=== PATIENT | female | born 1965 | race Caucasian/White ===

== ENCOUNTER 2016-10-28 09:44 | Observation (INO) | payer MEDICARE, OTHER ==
[~2016-10-28] VITALS: Ht 170.2 cm; Wt 58.0 kg
[2016-10-28] VITALS (8 sets, daily range): BP systolic 107–191; BP diastolic 57–108; PULSE 65–86; RESP 18–22; TEMP 97.6–98.4; O2SAT 92–98
[~2016-10-28 09:44] MED LIST: AMIT1TAB79 PO; AMOX500T PO; ASPI-110 PO; BUSP10TA PO; GABA800T PO; HYDR-3583 PO; ZOLO25TA PO
[2016-10-28 10:15] LABS: AUTOMATED NEUTROPHIL # 3.3 TH/MM3 (1.8-7.7); BASOPHIL % 0.7 % (0.0-2.0); EOSINOPHIL # 0.1 TH/MM3 (0-0.4); EOSINOPHIL % 1.9 % (0.0-4.0); HEMATOCRIT 41.8 % (35.0-46.0); HEMO FLAGS DIFF FINAL; LYMPH % 27.2 % (9.0-44.0); LYMPHOCYTE # 1.5 TH/MM3 (1.0-4.8); MEAN CELL VOLUME 91.7 FL (80.0-100.0); MEAN CORPUSCULAR HEMOGLOBIN 31.1 PG (27.0-34.0); MEAN CORPUSCULAR HGB CONC 33.9 % (32.0-36.0); MONO % 8.9 % (0.0-8.0); NEUT % 61.3 % (16.0-70.0); PLATELET COUNT 231 TH/MM3 (150-450); RED BLOOD COUNT 4.55 MIL/MM3 (4.00-5.30); RED CELL DISTRIBUTION WIDTH 13.5 % (11.6-17.2); WHITE BLOOD COUNT 5.4 TH/MM3 (4.0-11.0)
[2016-10-28 10:30] LABS: ANION GAP 7 MEQ/L (5-15); BLOOD UREA NITROGEN 15 MG/DL (7-18); CHLORIDE 103 MEQ/L (98-107); GLOMERULAR FILTRATION RATE 75 ML/MIN (>89); POTASSIUM 3.8 MEQ/L (3.5-5.1); SODIUM (NA) 140 MEQ/L (136-145)
--- NOTE | 2016-10-28 10:53 | RADRPT ---
EXAM DATE/TIME: 10/28/2016 10:20 [facility] COMPARISON: No previous studies available for comparison. INDICATIONS : Chest pain, cough MEDICAL HISTORY : Chronic obstructive pulmonary disease. Pneumonia SURGICAL HISTORY : None. ENCOUNTER: Initial ACUITY: 3 weeks PAIN SCORE: 6/10 LOCATION: chest FINDINGS: PA and lateral views of the chest demonstrate the lungs to be symmetrically aerated without evidence of mass, infiltrate or effusion. The cardiomediastinal contours are unremarkable. Osseous structure s are intact. CONCLUSION: No acute disease. Oscar Hodges MD FACR on October 28, 2016 at 10:51 Board Certified Radiologist. This report was verified electronically.
--- NOTE | 2016-10-28 11:56 | PD ---
HPI Chief Complaint: OD/ Ingestion Time Seen by Provider: 09:54 Travel History International Travel<30 days: No Contact w/Intl Traveler<30days: No Traveled to known affect area: No History of Present Illness HPI Patient is a 51-year-old female brought in by EMS after being found unconscious. Per EMS she admits to using heroine today. EMS found her unconscious with a GCS is 3, they gave her 0.8 mg of Narcan and she returned to her baseline. Patient is currently complaining of chest pain. She says she smoked crack last night and then used heroin this morning. She says she feels like someone has been pounding on her chest, she believes that her children might have performed chest compressions at the advice of the tree feller operator. She denies cough or cold. She denies fever or chills. PFSH Past Medical History Hx Anticoagulant Therapy: Yes (ASA) Bipolar Disorder: Yes Anxiety: Yes Depression: Yes Heart Rhythm Problems: No Cardiac Catheterization: Yes Cardiovascular Problems: Yes (ANGIOPLASTY ) High Cholesterol: No Congestive Heart Failure: No COPD: Yes Coronary Artery Disease: Yes Diabetes: No Diminished Hearing: No GERD: Yes Hepatitis: Yes (HEP C) Respiratory: Yes Integumentary: Yes (hx of mrsa) Myocardial Infarction: Yes (X 2) Influenza Vaccination: No ?: Not Menopausal: Yes Dilation and Curettage (D&C): Yes (X2) Past Surgical History Appendectomy: Yes Section: Yes (X3) Coronary Artery Bypass Graft: No Hysterectomy: Yes Thoracic Surgery: Yes (RLL LOBECTOMY) Family History Family Myocardial Infarction: Yes Social History Alcohol Use: Yes (OCC) Tobacco Use: Yes (1 PPD) Substance Use: Yes (IV DRUB ABUSE, HEROINE, CRACK) Allergies-Medications (Allergen,Severity, Reaction): Coded Allergies: Duragesic (Verified Allergy, Severe, 10/28/16) Sulfa (Unverified Allergy, Intermediate, Hives, 10/28/16) *MDRO Multi-Drug Resistant Organism (Verified Adverse Reaction, Unknown, ) MRSA buttock wound 05/2015 Reported Meds & Prescriptions Reported Meds & Active Scripts Active Reported Aspirin 81 (Aspirin) 81 Mg Tabdr 81 Mg PO DAILY Elavil (Amitriptyline HCl) 25 Mg Tab 50 Mg PO QHS Gabapentin 800 Mg Tab 800 Mg PO QID Zoloft (Sertraline HCl) 25 Mg Tab 25 Mg PO DAILY Buspirone (Buspirone HCl) 10 Mg Tab 10 Mg PO BID Review of Systems Except as stated in HPI: all other systems reviewed are Neg General / Constitutional: No: Fever, Chills HENT: No: Headaches, Lightheadedness Cardiovascular: Positive: Chest Pain or Discomfort Respiratory: No: Cough, Shortness of Breath Gastrointestinal: No: Nausea, Vomiting Musculoskeletal: No: Myalgias Neurologic: No: Weakness, Dizziness Physical Exam Narrative GENERAL: Awake and alert, in no acute distress. SKIN: Warm and dry. HEAD: Atraumatic. Normocephalic. EYES: Pupils equal and round. No scleral icterus. ENT: Mucous membranes pink and moist. NECK: Trachea midline. No JVD. CARDIOVASCULAR: Regular rate and rhythm. No murmur appreciated. RESPIRATORY: No accessory muscle use. Clear to auscultation. Breath sounds equal bilaterally. GASTROINTESTINAL: Abdomen soft, non-tender, nondistended. MUSCULOSKELETAL: No obvious deformities. No clubbing. No cyanosis. No edema. NEUROLOGICAL: Awake and alert. No obvious cranial nerve deficits. Motor grossly within normal limits. Normal speech. PSYCHIATRIC: Appropriate mood and affect; insight and judgment normal. Data Data Last Documented VS Vital Signs Date Time Temp Pulse Resp B/P Pulse Ox O2 Delivery O2 Flow Rate FiO2 10/28/16 10:01 76 20 156/96 96 Room Air 10/28/16 09:47 97.6 Orders Complete Blood Count With Diff (10/28/16 09:55) Basic Metabolic Panel (Bmp) (10/28/16 09:55) Troponin I (10/28/16 09:55) Chest, Pa & Lat (10/28/16 ) Electrocardiogram (10/28/16 ) Aspirin Chew (Aspirin Chew) (10/28/16 12:00) Admit Order (Ed Use Only) (10/28/16 ) Labs Laboratory Tests Test 10/28/16 10:05 White Blood Count 5.4 TH/MM3 Red Blood Count 4.55 MIL/MM3 Hemoglobin 14.1 GM/DL Hematocrit 41.8 % Mean Corpuscular Volume 91.7 FL Mean Corpuscular Hemoglobin 31.1 PG Mean Corpuscular Hemoglobin 33.9 % Concent Red Cell Distribution Width 13.5 % Platelet Count 231 TH/MM3 Mean Platelet Volume 7.9 FL Neutrophils (%) (Auto) 61.3 % Lymphocytes (%) (Auto) 27.2 % Monocytes (%) (Auto) 8.9 % Eosinophils (%) (Auto) 1.9 % Basophils (%) (Auto) 0.7 % Neutrophils # (Auto) 3.3 TH/MM3 Lymphocytes # (Auto) 1.5 TH/MM3 Monocytes # (Auto) 0.5 TH/MM3 Eosinophils # (Auto) 0.1 TH/MM3 Basophils # (Auto) 0.0 TH/MM3 CBC Comment DIFF FINAL Differential Comment Sodium Level 140 MEQ/L Potassium Level 3.8 MEQ/L Chloride Level 103 MEQ/L Carbon Dioxide Level 30.0 MEQ/L Anion Gap 7 MEQ/L Blood Urea Nitrogen 15 MG/DL Creatinine 0.81 MG/DL Estimat Glomerular Filtration 75 ML/MIN Rate Random Glucose 141 MG/DL Calcium Level 9.1 MG/DL Troponin I LESS THAN 0.02 NG/ML MDM Medical Decision Making Medical Screen Exam Complete: Yes Emergency Medical Condition: Yes Medical Record Reviewed: Yes Interpretation(s) ECG shows normal sinus rhythm at 71, no ST elevation or depression, normal intervals Differential Diagnosis Drug overdose versus ACS versus NSTEMI versus pneumonia Narrative Course Patient is a 51-year-old female brought in by EMS after being found unconscious. Currently she is complaining of chest pain. Exam shows no acute abnormalities. ECG shows no signs of ischemia. IV established, patient connected to the awake overnight monitor. Labs sent including troponin are negative for acute abnormalities. Chest x-ray shows no acute abnormalities. Patient continues to complain of chest pain. Due to patient's age, as well as cocaine use, we'll place in chest pain center for rule out ACS. Diagnosis Primary Impression: Chest pain Qualified Code: R07.9 - Chest pain, unspecified type Admitting Information Admitting Physician Requests: Observation Scripts Carvedilol (Coreg)3.125 Mg Tab3.125 Mg PO Q12HR #60 TAB Prov:Sanjuanita Cueto MD 10/29/16 Yohana Cody MD Oct 28, 2016 11:56
[2016-10-28] MEDS ORDERED: ASPIRIN 81 MG CHEW TAB CHEW ONE (12:00)
--- NOTE | 2016-10-28 13:43 | EKG ---
Date Performed: 10/28/2016 Time Performed: 10:00:23 PTAGE: 51 years EKG: Sinus rhythm VOLTAGE CRITERIA FOR LVH ABNORMAL ECG PREVIOUS TRACING : 06/11/2016 04.21 DOCTOR: Honorio Hudson Interpretating Date/Time 10/28/2016 13:42:31
[2016-10-28] MEDS ORDERED: PILL SPLITTER OTHER PRN (16:15)
--- NOTE | 2016-10-28 17:37 | MH ---
cc: KAYLA CUETO DATE OF ADMISSION: 10/28/2016 DATE OF 1965 REASON FOR ADMISSION OD, ingestion of heroin and crack over the past 24 hours. Travel in the last 30 days none. HISTORY OF PRESENT ILLNESS This is a very thin, chronically ill looking 51-year-old female who was found by EMS unconscious. It is unknown at this time who called EMS. The patient was given Narcan in the field according to the record and returned back to her baseline. The patient does admit to using heroin today. She also states that she smoked crack cocaine last night. On her way to the emergency room, the patient started complaining of chest pain. She describes it as a heavy sensation and feels like someone is squeezing her. She does have musculoskeletal pain and is not tolerant of even a stethoscope touching her chest at this time. The patient denies any nausea, vomiting, diarrhea or constipation. She denies any cough, no fever, no chills. No cough or cold lately. The patient has had a history of coronary artery disease before and has had angioplasty. The patient is a poor historian. Most of this information is being gathered by the record. PAST MEDICAL HISTORY 1. Aspirin for anticoagulant therapy 2. Bipolar disorder, 3. Anxiety depression. 4. Coronary artery disease, 5. Chronic obstructive pulmonary disease 6. Hepatitis C 7. History of MRSA 8. Myocardial infarctions times two. 9. Gastroesophageal reflux disease. PAST SURGICAL HISTORY According to the record 1. Appendectomy, 2. C-sections 3. Hysterectomy, 4. 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 SULFA DURAGESIC. MEDICATIONS Active 1. Aspirin, 2. Elavil 3. Gabapentin 4. Zoloft 5. BuSpar. SOCIAL HISTORY The patient is , currently lives in the home with her son. Her son lives with her. Social occasional alcohol use. Tobacco abuse a pack a day. IV drug user with heroin and crack cocaine since 1994. FAMILY HISTORY Heart disease. REVIEW OF SYSTEMS Limited ROS done secondary to the patient's altered mental status and drowsiness. The main note during our assessment was she is very drowsy, but immediately when aroused has a facial grimace and starts immediately complaining of pain. PHYSICAL EXAMINATION VITAL SIGNS: Temperature is 97.6, pulse is 65, respirations 18, blood pressure now 136/89, 191/108 on initial admission to the emergency room, has trended down since then. O2 sat 92% on room air. SKIN: Dry, thin turgor. No rashes. Warm. No edema. GENERAL: Thin female who looks older than her stated age resting in the bed. She is sleeping until aroused verbally HEENT: Atraumatic, normocephalic. Edentulous. Pupils are equal. Mucous membranes are pink, slightly dry. NECK: Supple. Trachea is midline, slim slender neck. CARDIOVASCULAR: S1-S2 heart sounds are distant. No murmur, rubs or gallops to my knowledge. EXTREMITIES: She has no edema. Pulses are intact. RESPIRATORY: Clear to auscultation anteriorly and posteriorly. No wheezes, rales or rhonchi. She does have some decreased breath sounds in her bases. GI: Abdomen is flat, soft, nontender, nondistended. Active bowel sounds. Musculoskeletal: No obvious deformity, no edema. No clubbing, no cyanosis. NEUROLOGIC: Neurologically she is drowsy. She will arouse and respond minimally to simple questions. Her speech is clear and normal. She is moving all extremities with purpose. No obvious deficits. PSYCHIATRIC: Drowsy, mood and affect is flat. Questionable insight and judgment. LABORATORY DATA Sodium 140, potassium 3.8, chloride 103, carbon dioxide 30, anion gap seven, BUN 15, creatinine 0.81, GFR 75, random glucose 141, calcium 9.1, troponin is less than 0.02. White count is 5.4, RBC 4.55, hemoglobin 14.1, hematocrit 41.8, platelet count 231, monocyte 8.9. IMAGING STUDIES Chest x-ray - Imaging study shows no acute disease. ASSESSMENT Overdose not intentional, chest pain, rule out [place], atypical, possibly costochondritis, hyperglycemia, nondiabetic, anxiety, chronic obstructive pulmonary disease, bipolar disorder and gastroesophageal reflux disease. PLAN Admit. We will reconcile her medications and place her on aspirin. Monitor her labs and treat any abnormals. Consult cardiology for their expert opinion. 2-D echo. DVT prophylaxis with heparin, PUD prophylaxis with Pepcid. The patient will have nitroglycerin ointment on her chest. As needed medications for bowel regimen. ECG monitoring and IV access. The patient is full code, full aggressive care and we will follow. Dictated by THEE Dasilva MD CAMRYN Sandoval/ /4:56 PM /8:21 AM pt is seen & Examined d/w PT d/w Katelin d/w COLIN GIRON see Orders see H&P will f/u Sanjuanita Cueto MD Oct 28, 2016 18:25 MTDD
[2016-10-28] MEDS: NITROGLYCERIN 2% OINT 1 GM PACKET TOPICAL SCH ×2 (17:53→22:41)
[2016-10-28] MEDS: GABAPENTIN 400 MG CAP PO SCH ×2 (17:54→22:41)
[2016-10-28] MEDS ORDERED: hydrALAZINE HCL 20 MG/ML VIAL IV PUSH PRN (18:00)
--- NOTE | 2016-10-28 18:05 | MB ---
cc: DANIEL IRIZARRY MD DATE OF CONSULTATION 10/28/16 INDICATION Chest pain. HISTORY OF PRESENT ILLNESS A 51-year-old female who was initially brought by EMS after being found unconscious. She has a strong history of drug use, used heroin today. In addition, recent crack cocaine use last night. She was given Narcan upon arrival and subsequently improved. Apparently, she has had CPR with chest compressions performed by her children through the advice of diecast machine operator. She is currently in moderate discomfort with pain in the chest. her electrocardiogram was unremarkable. She is not a good historian. PAST MEDICAL HISTORY 1. Bipolar disorder, depression 2. Prior angioplasty 3. Chronic obstructive pulmonary disease. 4. Gastroesophageal reflux disease, 5. Hepatitis C 6. MRSA 7. Right lower lobe lobectomy 8. section 9. hysterectomy. SOCIAL HISTORY Occasional alcohol use, one pack a day smoker, drug abuse as mentioned above. FAMILY HISTORY Has not family history of early coronary disease or sudden cardiac . ALLERGIES DURAGESIC SULFA MEDICATIONS Reported 1. Aspirin, 2. Elavil 3. Gabapentin 4. Buspirone REVIEW OF SYSTEMS 12-point review of systems was performed, negative unless otherwise noted in history of present illness. PHYSICAL EXAMINATION VITAL SIGNS: Temperature 97, pulse 65, blood pressure 136/89 mmHg. GENERAL: Alert and oriented times three in no acute distress. HEENT: Pupils reactive to light and accommodation. Extraocular movements are intact. No elevation in jugular venous distension. No thyromegaly or lymphadenopathy. No carotid bruits. LUNGS: Clear to auscultation bilaterally. CARDIOVASCULAR: Regular rate and rhythm without murmurs, rubs, gallops. ABDOMEN: Nontender, nondistended. Good bowel sounds. No hepatosplenomegaly. EXTREMITIES: No clubbing, cyanosis or edema. Good peripheral pulses. NEUROLOGIC: Cranial nerves intact. Motor sensory grossly intact. LABORATORY DATA WBC 5.4, hemoglobin 14.1, platelet count 231. Sodium 140, potassium 3.9, BUN 15, creatinine 0.81, troponins negative x1. CARDIOLOGY STUDIES Electrocardiogram sinus rhythm, no ischemic changes. ASSESSMENT 1. Chest pain. 2. Recent drug use including crack cocaine and heroin PLAN The patient appears to be in moderate distress. She has significant tenderness on deep palpation which is likely related to CPR. Her electrocardiogram is unremarkable. Initial troponin is negative. I do not think this represents acute coronary syndrome. She was quite hypertensive upon arrival. Her description is not that consistent with aortic dissection especially given her tenderness and reproduction with palpation, but she does look to be more uncomfortable than would be expected with sternal related pain. Given her recent crack cocaine use, I think it would be worthwhile to do a CAT scan of the chest to make sure there is no pathology. She may also be malingering for narcotics. If the CT scan is unremarkable, there is no need for any further cardiac workup at this time given her atypical presentation. No need for stress test. addendum: CT chest unremarkable. will sign off. NSAIDS for musculoskeletal pain call with further questions MD RIMA Ferris/ /5:11 PM /5:54 PM MTDHong
--- NOTE | 2016-10-28 18:25 | HHI.PR ---
Objective Objective Results - Vital Signs Date Time Temp Pulse Resp B/P Pulse Ox O2 Delivery O2 Flow Rate FiO2 10/28/16 17:30 70 10/28/16 17:25 98.0 72 22 107/60 97 10/28/16 14:37 65 18 136/89 92 Room Air 10/28/16 12:34 75 18 133/90 96 Room Air 10/28/16 10:01 76 20 156/96 96 Room Air 10/28/16 09:58 75 20 96 Room Air 10/28/16 09:47 97.6 76 20 191/108 96 Result Diagram: 10/28/16 1005 10/28/16 1005 Other Results Laboratory Tests Test 10/28/16 10:05 White Blood Count 5.4 Red Blood Count 4.55 Hemoglobin 14.1 Hematocrit 41.8 Mean Corpuscular Volume 91.7 Mean Corpuscular Hemoglobin 31.1 Mean Corpuscular Hemoglobin 33.9 Concent Red Cell Distribution Width 13.5 Platelet Count 231 Mean Platelet Volume 7.9 Neutrophils (%) (Auto) 61.3 Lymphocytes (%) (Auto) 27.2 Monocytes (%) (Auto) 8.9 Eosinophils (%) (Auto) 1.9 Basophils (%) (Auto) 0.7 Neutrophils # (Auto) 3.3 Lymphocytes # (Auto) 1.5 Monocytes # (Auto) 0.5 Eosinophils # (Auto) 0.1 Basophils # (Auto) 0.0 CBC Comment DIFF FINAL Differential Comment Sodium Level 140 Potassium Level 3.8 Chloride Level 103 Carbon Dioxide Level 30.0 Anion Gap 7 Blood Urea Nitrogen 15 Creatinine 0.81 Estimat Glomerular Filtration 75 Rate Random Glucose 141 Calcium Level 9.1 Troponin I LESS THAN 0.02 Physical Exam Physical Exam pt is seen & Examined d/w PT d/w Katelin d/w COLIN GIRON see Orders see H&P will f/u Sanjuanita Cueto MD Oct 28, 2016 18:25
[2016-10-28] MEDS ORDERED: IOHEXOL 350 MG/ML 10 ML VIAL (for RAD DIAG) IV ONE (19:48)
--- NOTE | 2016-10-28 20:11 | RADRPT ---
EXAM DATE/TIME: 10/28/2016 19:44 [facility] COMPARISON: No previous studies available for comparison. INDICATIONS : Chest pain with hypertension and cocaine use. Evaluate dissection. IV CONTRAST: 100 cc Omnipaque 350 (iohexol) IV RADIATION DOSE: 14.22 CTDIvol (mGy) MEDICAL HISTORY : Hepatitis C. SURGICAL HISTORY : Appendectomy. Hysterectomy. section.Lumbar fusion. Lobectomy. ENCOUNTER: Initial ACUITY: 1 day PAIN SCALE: 5/10 LOCATION: chest TECHNIQUE: Volumetric scanning was performed using a multi-row detector CT scanner. The data was post processed with a variety of visualization algorithms including full volume maximum intensity projection, multi -planar sliding thin slab reformation, curved planar reformation, and surface rendering techniques. Using automated exposure control and adjustment of the mA and/or kV according to patient size, radiat ion dose was kept as low as reasonably achievable to obtain optimal diagnostic quality images. FINDINGS: LUNGS: There is no consolidation or pneumothorax. No concerning pulmonary nodule is visualized. No pleural fluid is present. There is mild emphysema. MEDIASTINUM: No abnormally enlarged lymph nodes by CT criteria. No axillary or hilar abnormalities are identified. ABDOMEN: The liver and spleen are free of focal defects. The gallbladder and pancreas demonstrate no abnormali ty. The adrenal glands are normal. The kidneys demonstrate no evidence of solid renal mass or hydrone phrosis. No free fluid or abdominal masses are identified. No para-aortic adenopathy is seen. PELVIS: No evidence of free fluid or pelvic mass. No abnormally enlarged inguinal or retroperitoneal lymph no caleb are present. The bladder is unremarkable. THORACIC AORTA: The thoracic aortic root is normal with normal branching of the great vessels. There is no evidence of aneurysm or dissection. Incidentally seen left vertebral artery origin right off the arch. ABDOMIN AL AORTA: The aorta is normal in caliber without aneurysm or dissection. The renal arteries are patent bilater ally. The proximal celiac and superior mesenteric arteries are patent and normal in diameter. PELVIC VESSELS: The internal iliac and external iliac vessels are patent without aneurysm or stenosis. CONCLUSION: 1. No acute abnormality. Specifically, no aneurysm or dissection of the aorta. 2. Mild emphysema. Markie Peters MD on October 28, 2016 at 20:08 Board Certified Radiologist. This report was verified electronically.
[2016-10-28] MEDS ORDERED: AMITRIPTYLINE HCL 25 MG TAB PO SCH (21:00)
[2016-10-28] MEDS: FAMOTIDINE 20 MG TAB PO SCH (22:41)
[2016-10-28] MEDS: busPIRone HCL 10 MG TAB PO SCH (22:41)
[2016-10-28] MEDS: CARVEDILOL 3.125 MG TAB PO SCH (22:41)
[2016-10-29 01:06] VITALS: BP 130/78; PULSE 71; RESP 18; TEMP 98.8; O2SAT 98
[2016-10-29 04:01] VITALS: BP 122/74; PULSE 71; RESP 18; TEMP 98.4; O2SAT 97
[2016-10-29] MEDS: NITROGLYCERIN 2% OINT 1 GM PACKET TOPICAL SCH (05:25)
[2016-10-29 07:30] LABS: HDL CHOLESTEROL 77.8 MG/DL (40.0-60.0); LDL CHOLESTEROL 58 MG/DL (0-99)
[2016-10-29 08:00] VITALS: PULSE 73
[2016-10-29 08:30] VITALS: BP 137/88; PULSE 70; RESP 16; TEMP 97; O2SAT 93
[2016-10-29] MEDS ORDERED: SERTRALINE HCL 50 MG TAB PO SCH (09:00)
[2016-10-29] MEDS ORDERED: ASPIRIN EC 81 MG TABEC PO SCH (09:00)
--- NOTE | 2016-10-29 09:16 | HHI.PR ---
Subjective Remarks Drowsy and sleeping off and on this a.m. Sitter in room, states she is restless at times Color pale pink Less soreness to chest palpation this a.m. Monitor for withdrawal of drugs (Katelin Almanza) Objective Objective Results - Vital Signs Date Time Temp Pulse Resp B/P Pulse Ox O2 Delivery O2 Flow Rate FiO2 10/29/16 08:30 97.0 70 16 137/88 93 10/29/16 04:01 98.4 71 18 122/74 97 10/29/16 01:06 98.8 71 18 130/78 98 10/28/16 23:38 70 10/28/16 20:51 98.4 86 21 113/57 98 10/28/16 17:30 70 10/28/16 17:25 98.0 72 22 107/60 97 10/28/16 14:37 65 18 136/89 92 Room Air 10/28/16 12:34 75 18 133/90 96 Room Air 10/28/16 10:01 76 20 156/96 96 Room Air 10/28/16 09:58 75 20 96 Room Air 10/28/16 09:47 97.6 76 20 191/108 96 (Katelin Almanza) Result Diagram: 10/28/16 1005 10/28/16 1005 ROS General: Fatigue (off and on with restlessness), Other (10 point ROS done limited exam due to patient's extreme restlessness, ) Cardiac: Chest Pain (atypical sore to touch) (Katelin Almanza) Physical Exam Physical Exam PHYSICAL EXAMINATION GENERAL: This is a thin female who appears to be in no acute distress at present time She is drowsy HEAD: Normocephalic without any lesion or mass noted. Edentulous OROPHARYNGEAL: Oropharynx without erythema or edema. NECK: Supple. No nuchal rigidity or lymphadenopathy. Trachea midline without deviation. CARDIAC: Regular rhythm, regular rate, S1 and S2 are heard. LUNGS: Clear to auscultation bilaterally. no wheeze, no rhonchi. No use of accessory muscles on inspiration or expiration. ABDOMEN: Soft, nontender, no organomegaly or masses. Bowel sounds are heard in all four quadrants. No rebound. No guarding. EXTREMITIES: No edema. Pulses equal bilateral. NEUROLOGICAL: Patient mood and affect appropriate labile. Alternates sleeping and restlessness SKIN:Warm and moist Objective Remarks Answered yes to "do you have chest pain" (Katelin Almanza) A/P Assessment and Plan ASSESSMENT Overdose not intentional, monitoring for withdrawal symptoms of crack and heroin. Patient is attempting to sleep it off. chest pain, OR ruled out. No enzyme abnormality atypical, possibly costochondritis, patient seen per cardiology which feels this is a noncardiac event. CT done to rule out any aneurysm or abnormal findings. No stress test or further cardiac workup recommended Patient on aspirin, history of cardiovascular disease anxiety, patient has sitter in room, has periods of anxiety versus sleeping, monitor for any drug withdrawal symptoms, recent ingestion of heroin and crack chronic obstructive pulmonary disease, no SOB noted patient is currently on room air monitor for any acute event. May have O2 when necessary bipolar disorder, medical management gastroesophageal reflux disease. Medical management DVT prophylaxis with heparin, PUD prophylaxis with Pepcid. bowel regimen. Monitor Vital signs and labs reviewed. Patient is afebrile blood pressure staying within normal range. When necessary medications if systolic greater than 180 or diastolic greater than 100. (Katelin Almanza) Assessment and Plan pt is seen & examined MS chest pain/+ce CW tenderness trop T neg card consult appreciated medically stable for d/c d/c home today see MRS see orders f/u pcp counselled against Drug use, Risk of IVDU explained (Sanjuanita Cueto MD) Katelin Almanza Oct 29, 2016 09:16 Sanjuanita Cueto MD Oct 29, 2016 11:14
[2016-10-29] MEDS: busPIRone HCL 10 MG TAB PO SCH (09:45)
[2016-10-29] MEDS: FAMOTIDINE 20 MG TAB PO SCH (09:45)
[2016-10-29] MEDS: CARVEDILOL 3.125 MG TAB PO SCH (09:45)
[2016-10-29] MEDS: GABAPENTIN 400 MG CAP PO SCH (09:46)
[2016-10-29] MEDS ORDERED: CARV3.125 PO (11:28)
--- NOTE | 2016-10-29 15:38 | EKG ---
Date Performed: 10/29/2016 Time Performed: 06:40:51 PTAGE: 51 years EKG: Sinus rhythm VOLTAGE CRITERIA FOR LVH POSSIBLE SEPTAL MYOCARDIAL INFARCTION ABNORMAL ECG PREVIOUS TRACING : 10/28/2016 10.00 Compared to prior tracing no significant change DOCTOR: Delaney Locke Interpretating Date/Time 10/29/2016 15:35:51
--- NOTE | 2016-10-31 18:31 | HHI.DS ---
Discharge Summary Admission Date Oct 28, 2016 at 11:58 Discharge Date: Oct 29, 2016 Admitting Diagnosis Chest Pain (1) Chest pain (2) Substance abuse (3) Tobacco abuse (4) Atypical chest pain (5) Overdose of heroin CBC/BMP: 10/28/16 1005 10/28/16 1005 Significant Findings Laboratory Tests Test 10/29/16 06:30 Troponin I LESS THAN 0.02 NG/ML (0.02-0.05) Triglycerides Level 41 MG/DL (42-150) HDL Cholesterol 77.8 MG/DL (40.0-60.0) Imaging Last Impressions Chest X-Ray 10/28/16 0000 Signed Impressions: Service Date/Time: October 10:20 - CONCLUSION: No acute disease. Oscar Hodges MD FACR Aorta CTA 10/28/16 0000 Signed Impressions: Service Date/Time: October 19:44 - CONCLUSION: 1. No acute abnormality. Specifically, no aneurysm or dissection of the aorta. 2. Mild emphysema. Markie Peters MD Hospital Course This is a very thin, chronically ill looking 51-year-old female who was found by EMS unconscious. It is unknown who called EMS. The patient was given Narcan in the field according to the record and returned back to her baseline. The patient did admit to using heroin. She also stated that she smoked crack cocaine last night. On her way to the emergency room, the patient started complaining of chest pain. She described it as a heavy sensation and feels like someone is squeezing her. She did have musculoskeletal pain and is not tolerant of even a stethoscope touching her chest. The patient denied any nausea, vomiting, diarrhea or constipation. She denied any cough, no fever, no chills. No cough or cold lately. The patient has had a history of coronary artery disease before and has Pt. was evaluated in the ED, work up was done: Sodium 140, potassium 3.8, chloride 103, carbon dioxide 30, anion gap seven, BUN 15, creatinine 0.81, GFR 75, random glucose 141, calcium 9.1, troponin is less than 0.02. White count is 5.4, RBC 4.55, hemoglobin 14.1, hematocrit 41.8, platelet count 231, monocyte 8.9. IMAGING STUDIES Chest x-ray - Imaging study shows no acute disease. Pt. was admitted for" Overdose not intentional, chest pain, rule out IA, atypical, possibly costochondritis, hyperglycemia, nondiabetic, anxiety, chronic obstructive pulmonary disease, bipolar disorder and gastroesophageal reflux disease. During the hospital stay, the following took place: Patient was admitted, put on cardiac telemetry Serial cardiac enzymes were ordered Cardiology was consulted for evaluation Patient was put on aspirin Nitroglycerin ointment was ordered Appropriate DVT and GI prophylaxis were ordered Further workup was done, no evidence of ACS CTA was negative for aortic dissection Patient was counseled about drug use Sitter was ordered at the bedside Chest and was ruled out, per cardiology no evidence of ACS No further workup was recommended Patient was started on carvedilol Patient with history of COPD, oxygen as needed was ordered For her bipolar disease, she was continued on her medical management Patient stabilized, chest was tender to palpation but overall improved Patient was counseled extensively about drug use, risk of IV drug use and infection Patient was cleared for discharge. Patient was discharged home in stable condition Pt Condition on Discharge: Stable Discharge Disposition: Discharge Home Discharge Instructions DIET: Follow Instructions for: As Tolerated, No Restrictions, Heart Healthy Diet, On Tube Feeding, Clear Liquid Diet Activities you can perform: Regular-No Restrictions Other Activity Instructions: No drugs/ No crack/cocaine / no heroine use[no IVDU] Follow up Referrals: Cardiology - 1 Month PCP Follow-up - 1 Week New Medications: Carvedilol (Coreg) 3.125 Mg Tab 3.125 MG PO Q12HR htn #60 TAB Continued Medications: Amitriptyline HCl (Elavil) 25 Mg Tab 50 MG PO qhs Aspirin DR (Aspirin 81) 81 Mg Tabdr 81 MG PO DAILY Ref 0 TAB Buspirone (Buspirone) 10 Mg Tab 10 MG PO BID Anxiety Ref 0 TAB Gabapentin (Gabapentin) 800 Mg Tab 800 MG PO QID #90 Ref 0 TAB Sertraline (Zoloft) 25 Mg Tab 25 MG PO DAILY #30 Ref 0 TAB Swathi Alvarez Oct 31, 2016 18:31
== END 2016-10-29 11:47 | disposition home or self-care (01) ==
LOC: NEPE 09:44 → NEDA 11:58 → NEPFCDU 17:20
PROVIDERS: ADMIT Specialist; ATTEND Specialist
DX: R07.89 Other chest pain (principal); T40.1X1A Poisoning by heroin, accidental (unintentional), initial encounter; F19.10 Other psychoactive substance abuse, uncomplicated; F14.10 Cocaine abuse, uncomplicated; F17.200 Nicotine dependence, unspecified, uncomplicated; F11.10 Opioid abuse, uncomplicated; F41.9 Anxiety disorder, unspecified; I25.10 Atherosclerotic heart disease of native coronary artery without angina pectoris; J44.9 Chronic obstructive pulmonary disease, unspecified; B19.20 Unspecified viral hepatitis C without hepatic coma; F32.9 Major depressive disorder, single episode, unspecified; I25.2 Old myocardial infarction; K21.9 Gastro-esophageal reflux disease without esophagitis; Z79.82 Long term (current) use of aspirin; Z88.2 Allergy status to sulfonamides
CPT/HCPCS: 71020; 71275; 74174; 80048; 80061; 84484; 85025; 93005; 99285; G0378; Q9967

== ENCOUNTER 2016-12-23 22:42 | Emergency (ER) | payer MEDICARE, OTHER ==
[~2016-12-23 22:42] MED LIST changes: -AMOX500T PO; +CARV3.125 PO; -HYDR-3583 PO
[2016-12-23 23:09] VITALS: BP 120/55; PULSE 89; RESP 18; TEMP 97.8; O2SAT 97
--- NOTE | 2016-12-23 23:52 | PD ---
HPI Chief Complaint: Respiratory Symptoms Time Seen by Provider: 11:40 Travel History International Travel<30 days: No Contact w/Intl Traveler<30days: No Traveled to known affect area: No History of Present Illness HPI 51-year-old female history of heroin and crack abuse, bipolar disorder, COPD, hepatitis C, coronary artery disease, anxiety, GERD presents for evaluation shortness of breath and chest pain. Symptoms started this evening when she was sitting outside. She describes it as a substernal chest pressure that radiates into the left arm and neck. She describes the shortness of breath as the sensation of inability to receive a full breath of air. She endorses a history of COPD but feels that this is different from her COPD. She is somewhat of a poor historian in general. She denies any nausea or vomiting, diaphoresis, cough, unilateral leg pain or swelling, history of DVT or PE. Per chart review the patient was admitted in October after an overdose. She underwent serial cardiac enzymes because she was complaining of chest pain. They were negative. She had a CTA of the aorta performed which was normal. She was seen here in May 2016 and the [facility] and had a negative stress test. Denies any recent crack use. Last used heroin 2 days ago. No other complaints. PFSH Past Medical History Hx Anticoagulant Therapy: Yes (ASA) Asthma: No Blood Disorders: No Bipolar Disorder: Yes Anxiety: Yes Depression: Yes Heart Rhythm Problems: No Cancer: No Cardiac Catheterization: Yes Cardiovascular Problems: Yes (ANGIOPLASTY ) High Cholesterol: No Chemotherapy: No Chest Pain: Yes Congestive Heart Failure: No COPD: Yes Coronary Artery Disease: Yes Diabetes: No Diminished Hearing: No Endocrine: No Gastrointestinal Disorders: Yes (esophageal stricture) GERD: Yes Genitourinary: No Hepatitis: Yes (HEP C) Immune Disorder: No Musculoskeletal: No Neurologic: No Psychiatric: Yes (schizo effective, bipolar,) Reproductive: No Respiratory: Yes (copd) Integumentary: Yes (hx of mrsa) Myocardial Infarction: Yes (X 2) Radiation Therapy: No Thyroid Disease: No ?: Not Menopausal: Yes Dilation and Curettage (D&C): Yes (X2) Past Surgical History Appendectomy: Yes Section: Yes (X3) Coronary Artery Bypass Graft: No Hysterectomy: Yes Thoracic Surgery: Yes (RLL LOBECTOMY) Other Surgery: Yes (, backsurgery) Family History Family Myocardial Infarction: Yes Social History Alcohol Use: Yes (OCC) Tobacco Use: Yes (1 PPD) Substance Use: Yes (IV DRUB ABUSE, HEROINE, CRACK) Allergies-Medications (Allergen,Severity, Reaction): Coded Allergies: Duragesic (Verified Allergy, Severe, 10/28/16) Sulfa (Unverified Allergy, Intermediate, Hives, 10/28/16) *MDRO Multi-Drug Resistant Organism (Verified Adverse Reaction, Unknown, ) MRSA buttock wound 05/2015 Reported Meds & Prescriptions Reported Meds & Active Scripts Active Coreg (Carvedilol) 3.125 Mg Tab 3.125 Mg PO Q12HR Reported Aspirin 81 (Aspirin) 81 Mg Tabdr 81 Mg PO DAILY Elavil (Amitriptyline HCl) 25 Mg Tab 50 Mg PO QHS Gabapentin 800 Mg Tab 800 Mg PO QID Zoloft (Sertraline HCl) 25 Mg Tab 25 Mg PO DAILY Buspirone (Buspirone HCl) 10 Mg Tab 10 Mg PO BID Review of Systems Except as stated in HPI: all other systems reviewed are Neg Physical Exam Narrative GENERAL: Disheveled appearing female who is in no acute distress. SKIN: Warm and dry. HEAD: Atraumatic. Normocephalic. EYES: Pupils equal and round. No scleral icterus. No injection or drainage. ENT: No nasal bleeding or discharge. Mucous membranes pink and moist. NECK: Trachea midline. No JVD. Neck supple full range of motion. CARDIOVASCULAR: Regular rate and rhythm. No murmur appreciated. RESPIRATORY: No accessory muscle use. Clear to auscultation. Breath sounds equal bilaterally. No crackles no wheezing or rhonchi. GASTROINTESTINAL: Abdomen soft, non-tender, nondistended. Hepatic and splenic margins not palpable. MUSCULOSKELETAL: No obvious deformities. No edema. NEUROLOGICAL: Awake and alert. No obvious cranial nerve deficits. Motor grossly within normal limits. Normal speech. PSYCHIATRIC: Appropriate mood and affect; insight and judgment normal. Data Data Last Documented VS Orders Electrocardiogram (12/23/16 23:46) Basic Metabolic Panel (Bmp) (12/23/16 23:46) Ckmb (Isoenzyme) Profile (12/23/16 23:46) Complete Blood Count With Diff (12/23/16 23:46) D-Dimer (12/23/16 23:46) Magnesium (Mg) (12/23/16 23:46) Prothrombin Time / Inr (Pt) (12/23/16 23:46) Act Partial Throm Time (Ptt) (12/23/16 23:46) Troponin I (12/23/16 23:46) Chest, Single Ap (12/23/16 23:46) Ecg Monitoring (12/23/16 23:46) Bilateral Bp Monitoring (12/23/16 23:46) Iv Access Insert/Monitor (12/23/16 23:46) Oximetry (12/23/16 23:46) Oxygen Administration (12/23/16 23:46) Aspirin Chew (Aspirin Chew) (12/24/16 00:00) Sodium Chloride 0.9% Flush (Ns Flush) (12/24/16 00:00) Ct Pulmonary Angiogram (12/24/16 00:33) Troponin I (12/24/16 01:50) Electrocardiogram (12/24/16 01:50) Iohexol 350 Inj (Omnipaque 350 Inj) (12/24/16 01:13) Labs Laboratory Tests Test 12/23/16 12/24/16 23:50 01:41 White Blood Count 5.4 TH/MM3 Red Blood Count 3.63 MIL/MM3 Hemoglobin 11.4 GM/DL Hematocrit 32.9 % Mean Corpuscular Volume 90.7 FL Mean Corpuscular Hemoglobin 31.5 PG Mean Corpuscular Hemoglobin 34.7 % Concent Red Cell Distribution Width 13.5 % Platelet Count 232 TH/MM3 Mean Platelet Volume 8.2 FL Neutrophils (%) (Auto) 67.3 % Lymphocytes (%) (Auto) 22.4 % Monocytes (%) (Auto) 8.1 % Eosinophils (%) (Auto) 1.7 % Basophils (%) (Auto) 0.5 % Neutrophils # (Auto) 3.6 TH/MM3 Lymphocytes # (Auto) 1.2 TH/MM3 Monocytes # (Auto) 0.4 TH/MM3 Eosinophils # (Auto) 0.1 TH/MM3 Basophils # (Auto) 0.0 TH/MM3 CBC Comment DIFF FINAL Differential Comment Prothrombin Time 11.0 SEC Prothromb Time International 1.0 RATIO Ratio Activated Partial 28.5 SEC Thromboplast Time D-Dimer Quantitative (PE/DVT) 0.84 MG/L FEU Sodium Level 145 MEQ/L Potassium Level 3.4 MEQ/L Chloride Level 109 MEQ/L Carbon Dioxide Level 26.3 MEQ/L Anion Gap 10 MEQ/L Blood Urea Nitrogen 21 MG/DL Creatinine 0.98 MG/DL Estimat Glomerular Filtration 60 ML/MIN Rate Random Glucose 83 MG/DL Calcium Level 8.7 MG/DL Magnesium Level 2.5 MG/DL Total Creatine Kinase 70 U/L Troponin I LESS THAN 0.02 LESS THAN 0.02 NG/ML NG/ML MDM Medical Decision Making Medical Screen Exam Complete: Yes Emergency Medical Condition: Yes Medical Record Reviewed: Yes Interpretation(s) EKG reveals sinus rhythm, rate 86 Differential Diagnosis Angina, acute coronary syndrome, vasospasm, pulmonary embolism, COPD exacerbation, spontaneous pneumothorax, pericarditis, myocarditis Narrative Course 51-year-old female with substernal chest pain that radiates into the left arm and jaw, shortness of breath which started while sitting this evening. The patient will be placed on ECG monitoring and pulse oximetry. Plan is for 12- lead EKG, basic lab work cardiac enzymes, chest x-ray. She was given 162 mg of aspirin. D-dimer was elevated so CT pulmonary angiogram was ordered. 2300:At the end of my shift the patient was signed out to Dr. Falk for disposition. Procedures EKG Prior to Arrival: Yes Florencio Jimenez December 23, 2016 23:52 disposition. Procedures EKG Prior to Arrival: Yes Florencio Jimenez December 23, 2016 23:52
[2016-12-23 23:53] VITALS: RESP 22; O2SAT 98
[2016-12-24] MEDS ORDERED: ASPIRIN 81 MG CHEW TAB PO ONE
[2016-12-24] MEDS ORDERED: SODIUM CHLORIDE 0.9% FLUSH 10 ML FLUSH IVF PRN
[2016-12-24 00:07] LABS: AUTOMATED NEUTROPHIL # 3.6 TH/MM3 (1.8-7.7); BASOPHIL % 0.5 % (0.0-2.0); EOSINOPHIL # 0.1 TH/MM3 (0-0.4); EOSINOPHIL % 1.7 % (0.0-4.0); HEMATOCRIT 32.9 % (35.0-46.0); HEMO FLAGS DIFF FINAL; LYMPH % 22.4 % (9.0-44.0); LYMPHOCYTE # 1.2 TH/MM3 (1.0-4.8); MEAN CELL VOLUME 90.7 FL (80.0-100.0); MEAN CORPUSCULAR HEMOGLOBIN 31.5 PG (27.0-34.0); MEAN CORPUSCULAR HGB CONC 34.7 % (32.0-36.0); MONO % 8.1 % (0.0-8.0); NEUT % 67.3 % (16.0-70.0); PLATELET COUNT 232 TH/MM3 (150-450); RED BLOOD COUNT 3.63 MIL/MM3 (4.00-5.30); RED CELL DISTRIBUTION WIDTH 13.5 % (11.6-17.2); WHITE BLOOD COUNT 5.4 TH/MM3 (4.0-11.0)
--- NOTE | 2016-12-24 00:20 | RADRPT ---
EXAM DATE/TIME: 12/24/2016 00:16 [facility] COMPARISON: CHEST SINGLE AP, June 10, 2016, 20:42. INDICATIONS : Shortness of breath. MEDICAL HISTORY : Chronic obstructive pulmonary disease. Hepatitis C. SURGICAL HISTORY : Lobectomy. ENCOUNTER: Initial ACUITY: 1 day PAIN SCORE: 0/10 LOCATION: Bilateral chest FINDINGS: A single view of the chest demonstrates the lungs to be symmetrically aerated without evidence of mas s, infiltrate or effusion. There is hyperaeration of the lung miramontes characteristic of COPD. There is pleural thickening in the right costophrenic angle which is stable. The cardiomediastinal contours a re unremarkable. Osseous structures are intact. CONCLUSION: COPD. No acute pulmonary infiltrates. No significant changes compared to the prior study. Miki Hardwick MD on December 24, 2016 at 0:18 Board Certified Radiologist. This report was verified electronically.
[2016-12-24 00:22] LABS: APTT (PATIENT) 28.5 SEC (24.3-30.1)
[2016-12-24 00:39] LABS: ANION GAP 10 MEQ/L (5-15); BICARBONATE 26.3 MEQ/L (21.0-32.0); BLOOD UREA NITROGEN 21 MG/DL (7-18); CHLORIDE 109 MEQ/L (98-107); GLOMERULAR FILTRATION RATE 60 ML/MIN (>89); MAGNESIUM 2.5 MG/DL (1.5-2.5); POTASSIUM 3.4 MEQ/L (3.5-5.1); SODIUM (NA) 145 MEQ/L (136-145)
[2016-12-24 00:44] LABS: CREATINE KINASE 70 U/L (26-192)
[2016-12-24] MEDS ORDERED: IOHEXOL 350 MG/ML 10 ML VIAL (for RAD DIAG) IV ONE (01:13)
--- NOTE | 2016-12-24 01:23 | RADRPT ---
EXAM DATE/TIME: 12/24/2016 01:10 [facility] COMPARISON: No previous studies available for comparison. INDICATIONS : Chest pain and shortness of breath. IV CONTRAST: 65 cc Omnipaque 350 (iohexol) IV RADIATION DOSE: 12.64 CTDIvol (mGy) MEDICAL HISTORY : Myocardial infarction. Coronary artery disease. SURGICAL HISTORY : Angioplasty. ENCOUNTER: Initial ACUITY: 1 day PAIN SCALE: 7/10 LOCATION: chest TECHNIQUE: Volumetric scanning of the chest was performed using a pulmonary embolism protocol MIP images were re constructed. Using automated exposure control and adjustment of the mA and/or kV according to patien t size, radiation dose was kept as low as reasonably achievable to obtain optimal diagnostic quality images. FINDINGS: PULMONARY ARTERIES: No filling defects are seen in the pulmonary arteries through the segmental level. LUNGS: There is no consolidation or pneumothorax . No concerning pulmonary nodule is visualized. There is e vidence of bullous emphysema in both lung miramontes. PLEURAE: There is no pleural thickening or pleural effusion. MEDIASTINUM: There is good visualization of the great vessels of the middle mediastinum. No evidence of mediastin al or hilar adenopathy/mass. MUSCULOSKELETAL: Within normal limits for patient age. MISCELLANEOUS: The visualized upper abdominal organs demonstrate no acute abnormality. CONCLUSION: 1. No pulmonary embolism 2. No acute pulmonary infiltrates 3. Bullous emphysema bilaterally. Miki Hardwick MD on December 24, 2016 at 1:19 Board Certified Radiologist. This report was verified electronically.
--- NOTE | 2016-12-24 02:36 | PD ---
Physical Exam Narrative Patient was seen by my medical receptionist assistant and signed out to me. Data Data Last Documented VS Vital Signs Date Time Temp Pulse Resp B/P Pulse Ox O2 Delivery O2 Flow Rate FiO2 12/23/16 23:53 22 98 Room Air 12/23/16 23:09 97.8 89 120/55 Orders Electrocardiogram (12/23/16 23:46) Basic Metabolic Panel (Bmp) (12/23/16 23:46) Ckmb (Isoenzyme) Profile (12/23/16 23:46) Complete Blood Count With Diff (12/23/16:46) D-Dimer (12/23/16:46) Magnesium (Mg) (12/23/16:46) Prothrombin Time / Inr (Pt) (12/23/16:46) Act Partial Throm Time (Ptt) (12/23/16:46) Troponin I (12/23/16:46) Chest, Single Ap (12/23/16:46) Ecg Monitoring (12/23/16:46) Bilateral Bp Monitoring (12/23/16:46) Iv Access Insert/Monitor (12/23/16:46) Oximetry (12/23/16:46) Oxygen Administration (12/23/16 23:46) Aspirin Chew (Aspirin Chew) (12/24/16 00:00) Sodium Chloride 0.9% Flush (Ns Flush) (12/24/16 00:00) Ct Pulmonary Angiogram (12/24/16 00:33) Troponin I (12/24/16 01:50) Electrocardiogram (12/24/16 01:50) Iohexol 350 Inj (Omnipaque 350 Inj) (12/24/16 01:13) Labs Laboratory Tests Test 12/23/16 12/24/16 23:50 01:41 White Blood Count 5.4 TH/MM3 Red Blood Count 3.63 MIL/MM3 Hemoglobin 11.4 GM/DL Hematocrit 32.9 % Mean Corpuscular Volume 90.7 FL Mean Corpuscular Hemoglobin 31.5 PG Mean Corpuscular Hemoglobin 34.7 % Concent Red Cell Distribution Width 13.5 % Platelet Count 232 TH/MM3 Mean Platelet Volume 8.2 FL Neutrophils (%) (Auto) 67.3 % Lymphocytes (%) (Auto) 22.4 % Monocytes (%) (Auto) 8.1 % Eosinophils (%) (Auto) 1.7 % Basophils (%) (Auto) 0.5 % Neutrophils # (Auto) 3.6 TH/MM3 Lymphocytes # (Auto) 1.2 TH/MM3 Monocytes # (Auto) 0.4 TH/MM3 Eosinophils # (Auto) 0.1 TH/MM3 Basophils # (Auto) 0.0 TH/MM3 CBC Comment DIFF FINAL Differential Comment Prothrombin Time 11.0 SEC Prothromb Time International 1.0 RATIO Ratio Activated Partial 28.5 SEC Thromboplast Time D-Dimer Quantitative (PE/DVT) 0.84 MG/L FEU Sodium Level 145 MEQ/L Potassium Level 3.4 MEQ/L Chloride Level 109 MEQ/L Carbon Dioxide Level 26.3 MEQ/L Anion Gap 10 MEQ/L Blood Urea Nitrogen 21 MG/DL Creatinine 0.98 MG/DL Estimat Glomerular Filtration 60 ML/MIN Rate Random Glucose 83 MG/DL Calcium Level 8.7 MG/DL Magnesium Level 2.5 MG/DL Total Creatine Kinase 70 U/L Troponin I LESS THAN 0.02 LESS THAN 0.02 NG/ML NG/ML [facility] Supervised Visit with HUY: Yes Interpretation(s) Last Impressions CT Angiography 12/24/16 0033 Signed Impressions: Service Date/Time: Saturday, December 24, 2016 01:10 - CONCLUSION: 1. No pulmonary embolism 2. No acute pulmonary infiltrates 3. Bullous emphysema bilaterally. Miki Hardwick MD Chest X-Ray 12/23/16 2346 Signed Impressions: Service Date/Time: Saturday, December 24, 2016 00:16 - CONCLUSION: COPD. No acute pulmonary infiltrates. No significant changes compared to the prior study. Miki Hardwick MD 2:35 AM. CBC within normal limit. Potassium 3.4. Cardiac enzymes are normal 2 sets. Diagnosis Primary Impression: Atypical chest pain Patient Instructions: General Instructions Additional Instruction: Follow-up local physician. Return if increasing chest pain or shortness of breath. Med/Other Pt SpecificInfo: No Change to Meds Disposition: 01 DISCHARGE HOME Condition: Stable Don Falk MD December 24, 2016 02:36
[2016-12-24 02:38] VITALS: BP 107/65; PULSE 79; RESP 18; O2SAT 96
--- NOTE | 2016-12-24 07:36 | EKG ---
Date Performed: 12/24/2016 Time Performed: 01:28:08 PTAGE: 51 years EKG: Sinus rhythm NORMAL ECG NO SIGNIFICANT CHANGE FROM PRIOR ELECTROCARDIOGRAM. PREVIOUS TRACING : 12/23/2016 22.55 DOCTOR: Beau Caraballo Interpretating Date/Time 12/24/2016 07:35:55
--- NOTE | 2016-12-24 07:37 | EKG ---
Date Performed: 12/23/2016 Time Performed: 22:55:40 PTAGE: 51 years EKG: Sinus rhythm NORMAL ECG NO SIGNIFICANT CHANGE FROM PRIOR ELECTROCARDIOGRAM. PREVIOUS TRACING : 10/29/2016 06.40 DOCTOR: Beau Caraballo Interpretating Date/Time 12/24/2016 07:36:55
== END 2016-12-24 02:46 | disposition home or self-care (01) ==
LOC: NEPC 22:42
DX: R07.89 Other chest pain (principal); R07.9 Chest pain, unspecified; J44.9 Chronic obstructive pulmonary disease, unspecified; F17.210 Nicotine dependence, cigarettes, uncomplicated; F14.90 Cocaine use, unspecified, uncomplicated; F11.90 Opioid use, unspecified, uncomplicated; Z79.01 Long term (current) use of anticoagulants
CPT/HCPCS: 71010; 71275; 80048; 82550; 83735; 84484; 85025; 85379; 85610; 85730; 93005; 99285; Q9967

== ENCOUNTER 2017-03-19 19:10 | Emergency (ER) | payer MEDICARE, OTHER ==
[~2017-03-19] VITALS: Ht 165.1 cm; Wt 65.0 kg
--- NOTE | 2017-03-19 19:31 | PD ---
HPI . Visual hallucinations for quite some time Chief Complaint: visual hallucinations Time Seen by Provider: 19:31 Travel History International Travel<30 days: No Contact w/Intl Traveler<30days: No Traveled to known affect area: No History of Present Illness HPI 51-year-old female with history of chronic back pain, schizoaffective disorder and polysubstance abuse here with complaints of visual hallucinations for quite some time. Patient tells me that she sees people in her home and they're trying to hurt her. She tells me that she feels they're hitting her, but no one else sees these people. She admits to recently using crack about 2-3 days ago, but says she was having hallucinations prior to using crack. She feels that the cracking of been laced with something as she feels more hallucinations are happening. She denies any suicidal or homicidal ideation. She reports long -standing history of sciatica and lower back pain, but has no specific complaints today. She tells me that she has a history of schizoaffective disorder and has been off her medications for over a year. She is hoping that during this hospitalization she is able to resume her medications. PFSH Past Medical History Hx Anticoagulant Therapy: Yes (ASA) Asthma: No Blood Disorders: No Bipolar Disorder: Yes Anxiety: Yes Depression: Yes Heart Rhythm Problems: No Cancer: No Cardiac Catheterization: Yes Cardiovascular Problems: Yes (ANGIOPLASTY ) High Cholesterol: No Chemotherapy: No Chest Pain: Yes Congestive Heart Failure: No COPD: Yes Coronary Artery Disease: Yes Diabetes: No Diminished Hearing: No Endocrine: No Gastrointestinal Disorders: Yes (esophageal stricture) GERD: Yes Genitourinary: No Hepatitis: Yes (HEP C) Immune Disorder: No Musculoskeletal: No Neurologic: No Psychiatric: Yes (schizo effective, bipolar,) Reproductive: No Respiratory: Yes (copd) Integumentary: Yes (hx of mrsa) Myocardial Infarction: Yes (X 2) Radiation Therapy: No Thyroid Disease: No Menopausal: Yes Dilation and Curettage (D&C): Yes (X2) Past Surgical History Appendectomy: Yes Section: Yes (X3) Coronary Artery Bypass Graft: No Hysterectomy: Yes Thoracic Surgery: Yes (RLL LOBECTOMY) Other Surgery: Yes (, backsurgery) Social History Alcohol Use: Yes (OCC) Tobacco Use: Yes (1 PPD) Substance Use: Yes (IV DRUB ABUSE, HEROINE, CRACK) Allergies-Medications (Allergen,Severity, Reaction): Coded Allergies: Duragesic (Verified Allergy, Severe, 03/19/17) Sulfa (Unverified Allergy, Intermediate, Hives, 03/19/17) *MDRO Multi-Drug Resistant Organism (Verified Adverse Reaction, Unknown, ) MRSA buttock wound 05/2015 Reported Meds & Prescriptions Reported Meds & Active Scripts Active Review of Systems General / Constitutional: No: Fever Eyes: No: Visual changes HENT: No: Headaches Cardiovascular: No: Chest Pain or Discomfort Respiratory: No: Shortness of Breath Gastrointestinal: No: Abdominal Pain Genitourinary: No: Dysuria Musculoskeletal: No: Pain Skin: No Rash Neurologic: No: Weakness Psychiatric: Positive: Disorder of Thought, No: Depression Endocrine: No: Polydipsia Hematologic/Lymphatic: No: Easy Bruising Physical Exam Narrative exam done in ambulance will and limited due to HIPPA GENERAL: thin, disheveled SKIN: Warm and dry. No visible rashes or bruising. HEAD: Normocephalic and atraumatic. EYES: No scleral icterus. No injection or drainage. EOM intact, ENT: No nasal drainage noted. Mucous membranes pink. Airway patent. NECK: Supple, trachea midline. No JVD. CARDIOVASCULAR: Regular rate and rhythm without murmurs, gallops, or rubs. RESPIRATORY: Breath sounds equal bilaterally. No accessory muscle use. No rhonchi or rales. GASTROINTESTINAL: Abdomen soft, non-tender, nondistended. EXTREMITIES: No cyanosis or edema. BACK: No obvious deformity. NEURO: CN II-12 intact, manager enterprise strength normal b/l, UE and LE 5/5, no focal deficits PSYCH: anxious, AAOx3 Data Data Last Documented VS Vital Signs Date Time Temp Pulse Resp B/P Pulse Ox O2 Delivery O2 Flow Rate FiO2 03/19/17 20:09 98.2 77 18 112/59 98 Room Air Orders Complete Blood Count With Diff (03/19/17 19:32) Comprehensive Metabolic Panel (03/19/17 19:32) Psych Screen (03/19/17 19:32) Drug Screen, Random Urine (03/19/17 19:32) Alcohol (Ethanol) (03/19/17 19:32) Salicylates (Aspirin) (03/19/17 19:32) Tylenol (Acetaminophen) (03/19/17 19:32) Urinalysis - C+S If Indicated (03/19/17 19:37) MDM Medical Decision Making Medical Screen Exam Complete: Yes Emergency Medical Condition: Yes Medical Record Reviewed: Yes Differential Diagnosis Drug-induced mood disorder, schizoaffective disorder, psychosis Narrative Course 51-year-old female here with complaints of visual hallucinations. She is a polysubstance abuser and this may be the source of her hallucinations. She also reports eating offer her psych meds for over a year. Labs have been ordered. If they're within normal limits, patient will be cleared for a psych screen. I discussed the case with Joaquin Fragoso PA-C, who will determine patient's disposition. Condition: Stable [place]ma Jo Mar 19, 2017 19:31
[2017-03-19 20:09] VITALS: BP 112/59; PULSE 77; RESP 18; TEMP 98.2; O2SAT 98
[2017-03-19 20:21] LABS: BACTERIA, URINE RARE /hpf; BLOOD, URINE NEG (NEG); COMMENT (UR) CULTURE INDICATED; CULTURE IF INDICATED CULTURE INDICATED; GLUCOSE,URINE NEG (NEG); KETONE, URINE NEG (NEG); MUCUS URINE FEW /lpf (OCC); NITRITE,URINE NEG (NEG); SQUAMOUS EPITHELIAL CELL URINE 1 /hpf (0-5); URINE COLOR YELLOW (YELLW/STRAW)
[2017-03-19 20:26] LABS: AMPHETAMINE, URINE NEG (NEG); BARBITURATES, URINE NEG (NEG); COCAINE, URINE POS (NEG)
[2017-03-19 20:29] LABS: AUTOMATED NEUTROPHIL # 7.4 TH/MM3 (1.8-7.7); BASOPHIL % 0.4 % (0.0-2.0); EOSINOPHIL # 0.3 TH/MM3 (0-0.4); EOSINOPHIL % 2.7 % (0.0-4.0); HEMATOCRIT 35.3 % (35.0-46.0); HEMO FLAGS DIFF FINAL; LYMPH % 17.5 % (9.0-44.0); LYMPHOCYTE # 1.8 TH/MM3 (1.0-4.8); MEAN CELL VOLUME 93.2 FL (80.0-100.0); MEAN CORPUSCULAR HEMOGLOBIN 31.4 PG (27.0-34.0); MEAN CORPUSCULAR HGB CONC 33.7 % (32.0-36.0); MONO % 7.7 % (0.0-8.0); NEUT % 71.7 % (16.0-70.0); PLATELET COUNT 298 TH/MM3 (150-450); RED BLOOD COUNT 3.78 MIL/MM3 (4.00-5.30); RED CELL DISTRIBUTION WIDTH 13.3 % (11.6-17.2); WHITE BLOOD COUNT 10.3 TH/MM3 (4.0-11.0)
[2017-03-19] MEDS ORDERED: CEPH-460 PO (20:32)
[2017-03-19 20:34] LABS: ANION GAP 6 MEQ/L (5-15); AST (GOT) 26 U/L (15-37); BICARBONATE 29.1 MEQ/L (21.0-32.0); BLOOD UREA NITROGEN 23 MG/DL (7-18); CHLORIDE 100 MEQ/L (98-107); GLOMERULAR FILTRATION RATE 68 ML/MIN (>89); POTASSIUM 3.9 MEQ/L (3.5-5.1); SODIUM (NA) 135 MEQ/L (136-145)
[2017-03-19 20:35] LABS: ALT (GPT) 38 U/L (10-53)
[2017-03-19 20:38] LABS: ALKALINE PHOSPHATASE 95 U/L (45-117); TOTAL BILIRUBIN ADULT 0.6 MG/DL (0.2-1.0)
[2017-03-19] MEDS ORDERED: CEPHALEXIN MONOHYDRATE 500 MG CAP PO ONE (20:45)
--- NOTE | 2017-03-19 20:46 | PD ---
Data Data Last Documented VS Vital Signs Date Time Temp Pulse Resp B/P Pulse Ox O2 Delivery O2 Flow Rate FiO2 03/19/17 20:09 98.2 77 18 112/59 98 Room Air Orders Complete Blood Count With Diff (03/19/17 19:32) Comprehensive Metabolic Panel (03/19/17 19:32) Psych Screen (03/19/17 19:32) Drug Screen, Random Urine (03/19/17 19:32) Alcohol (Ethanol) (03/19/17 19:32) Salicylates (Aspirin) (03/19/17 19:32) Tylenol (Acetaminophen) (03/19/17 19:32) Urinalysis - C+S If Indicated (03/19/17 19:37) Urine Culture (03/19/17 19:45) Cephalexin (Keflex) (03/19/17 20:45) Labs Laboratory Tests Test 03/19/17 19:45 White Blood Count 10.3 TH/MM3 Red Blood Count 3.78 MIL/MM3 Hemoglobin 11.9 GM/DL Hematocrit 35.3 % Mean Corpuscular Volume 93.2 FL Mean Corpuscular Hemoglobin 31.4 PG Mean Corpuscular Hemoglobin 33.7 % Concent Red Cell Distribution Width 13.3 % Platelet Count 298 TH/MM3 Mean Platelet Volume 7.7 FL Neutrophils (%) (Auto) 71.7 % Lymphocytes (%) (Auto) 17.5 % Monocytes (%) (Auto) 7.7 % Eosinophils (%) (Auto) 2.7 % Basophils (%) (Auto) 0.4 % Neutrophils # (Auto) 7.4 TH/MM3 Lymphocytes # (Auto) 1.8 TH/MM3 Monocytes # (Auto) 0.8 TH/MM3 Eosinophils # (Auto) 0.3 TH/MM3 Basophils # (Auto) 0.0 TH/MM3 CBC Comment DIFF FINAL Differential Comment Urine Color YELLOW Urine Turbidity CLEAR Urine pH 5.0 Urine Specific [place] 1.029 Urine Protein TRACE mg/dL Urine Glucose (UA) NEG mg/dL Urine Ketones NEG mg/dL Urine Occult Blood NEG Urine Nitrite NEG Urine Bilirubin NEG Urine Urobilinogen LESS THAN 2.0 MG/DL Urine Leukocyte Esterase MOD Urine RBC 2 /hpf Urine WBC 8 /hpf Urine Squamous Epithelial 1 /hpf Cells Urine Bacteria RARE /hpf Urine Mucus FEW /lpf Microscopic Urinalysis Comment CULTURE INDICATED Sodium Level 135 MEQ/L Potassium Level 3.9 MEQ/L Chloride Level 100 MEQ/L Carbon Dioxide Level 29.1 MEQ/L Anion Gap 6 MEQ/L Blood Urea Nitrogen 23 MG/DL Creatinine 0.88 MG/DL Estimat Glomerular Filtration 68 ML/MIN Rate Random Glucose 87 MG/DL Calcium Level 8.9 MG/DL Total Bilirubin 0.6 MG/DL Aspartate Amino Transf 26 U/L (AST/SGOT) Alanine Aminotransferase 38 U/L (ALT/SGPT) Alkaline Phosphatase 95 U/L Total Protein 7.1 GM/DL Albumin 3.4 GM/DL Salicylates Level 1.8 MG/DL Urine Opiates Screen POS Acetaminophen Level LESS THAN 2.0 MCG/ML Urine Barbiturates Screen NEG Urine Amphetamines Screen NEG Urine Benzodiazepines Screen NEG Urine Cocaine Screen POS Urine Cannabinoids Screen NEG Ethyl Alcohol Level LESS THAN 3 MG/DL MDM Supervised Visit with HUY: Yes Narrative Course I, Dr. Petty, have reviewed the advance practice practitioner's documentation and am in agreement, met with the patient face to face, made the diagnosis, and the medical decision making was done by me. *My assessment and Findings: Please see below CBC & BMP Diagram 03/19/17 19:45 Drug screen is positive for opiates and cocaine Tylenol level is negative Plan was discussed with patient at 9:20 PM who is in agreement with it. The history of present illness, ROS, physical exam, review of records and medical workup performed for today's visit have reasonably safely excluded organic etiologies for the patient's presenting complaint. We will continue to monitor the patient carefully in the ER until time of evaluation by the psychiatry service. We are available for any additional medical assistance if needed during the patient's ER course. Disposition per discretion of psychiatry is appreciated. Diagnosis Primary Impression: Substance abuse Additional Impression: UTI (urinary tract infection) Qualified Code: N30.00 - Acute cystitis without hematuria Scripts Cephalexin (Keflex)500 Mg [id number] Mg PO BID NEB 10 Days Ref 0 Prov:Ananya Hastings MD 03/19/17 Dc Petty MD Mar 19, 2017 20:46
[2017-03-19 20:48] LABS: ACETAMINOPHEN LESS THAN 2.0 MCG/ML (10.0-30.0)
[2017-03-19 21:50] VITALS: PULSE 74; RESP 16; O2SAT 97
[2017-03-20 06:13] VITALS: BP 119/68; PULSE 68; RESP 16; O2SAT 97
[2017-03-20 07:05] VITALS: BP 117/72; PULSE 66; RESP 14; O2SAT 95
[2017-03-20 10:30] VITALS: BP 107/69; PULSE 93; RESP 18; TEMP 99.1; O2SAT 95
--- NOTE | 2017-03-20 15:20 | PD.PSY.CON ---
Provisional Diagnosis Admission Date Date of consultation 03/20/2017 [place]. 1. Polysubstance dependence with associated mood disorder 2. Suspect malingering for fci [place]. Deferred History of Present Illness Service Psychiatry Consult Requested By Emergency department Reason for Consult Voluntary psychiatric evaluation Primary Care Physician Unknown HPI Ms. Mederos is a 51-year-old female with a reported history of depression and schizoaffective disorder who presented voluntarily complaining of visual hallucinations. She denied suicidal or homicidal ideation to the ED provider. Reviewing the electronic medical record, I see no prior psychiatric contact within our system. Patient seen and examined. Chart reviewed. Case discussed with nursing staff. There has been no evidence of any suicidality or homicidality while the patient has been under observation in the emergency department. On my examination today, the patient presents as a fairly vague historian. She is somewhat manipulative and I suspect malingering for fci. She emphasizes that she wants to be in a "safe environment." She was hoping that we could [facility] her to [facility] because [facility] keep her for a few days. Mood is somewhat dysphoric but not severely depressed, and I cannot elicit any depressive or hypomanic/manic symptoms otherwise. She does not describe any suicidal or homicidal ideation at this time but says, again somewhat manipulatively, that she entertains suicidal thoughts from time to time. No hypomanic or manic symptoms. No audiovisual hallucinations presently. No delusional beliefs. Remainder of the psychiatric ROS is negative. Past psychiatric history: The patient reports history of depression and schizoaffective disorder. Despite having lived in the area for several years, she reports that she has not established outpatient psychiatric care. She reports that her most recent admission was in [place] several years ago, although she also says that she has been to [facility] before somewhat later in the conversation. She endorses a history of suicide attempt by overdose. Family history: Patient reports mother and sister have depression. Chemical dependency history: Patient reports that she uses cocaine approximately daily. She does not provide any explanation for the opiates in her urine. No other substance use reported. Social history: The patient is from [place]. She is presently homeless. She is with 3 children. She has an 11th grade education. Denies legal problems. No reported access to guns or firearms. Review of Systems Except as stated in HPI: all other systems reviewed are Neg Past Family Social History Coded Allergies: Duragesic (Verified Allergy, Severe, 03/19/17) Sulfa (Unverified Allergy, Intermediate, Hives, 03/19/17) *MDRO Multi-Drug Resistant Organism (Verified Adverse Reaction, Unknown, ) MRSA buttock wound 05/2015 Past Medical History See electronic medical record Active Scripts Cephalexin (Keflex)500 Mg [id number] Mg PO BID NEB 10 Days Ref 0 Prov:Ananya Hastings MD 03/19/17 Discontinued Reported Medications Aspirin DR (Aspirin 81)81 Mg Tabdr81 Mg PO DAILY Ref 0 07/29/16 Amitriptyline HCl (Elavil)25 Mg Tab50 Mg PO qhs 07/29/16 Gabapentin 800 Mg Asl148 Mg PO QID #90 TAB Ref 0 07/29/16 Sertraline (Zoloft)25 Mg Tab25 Mg PO DAILY #30 TAB Ref 0 07/29/16 Buspirone 10 Mg Tab10 Mg PO BID Ref 0 07/29/16 Discontinued Scripts Carvedilol (Coreg)3.125 Mg Tab3.125 Mg PO Q12HR #60 TAB Prov:Sanjuanita Cueto MD 10/29/16 Patient's Strengths (min. 2) Able to access clinical care. Verbally fluent. Physical Exam Physical exam completed by ED provider. On my examination today, the patient appears to be in no acute physical distress. No motor abnormalities noted. No signs of intoxication or withdrawal noted. Labs and vitals reviewed: Vital Signs Vital Signs Date Time Temp Pulse Resp B/P Pulse Ox O2 Delivery O2 Flow Rate FiO2 03/20/17 10:30 93 18 107/69 Room Air 03/20/17 10:30 99.1 95 Lab Results Laboratory Tests Test 03/19/17 19:45 White Blood Count 10.3 TH/MM3 Red Blood Count 3.78 MIL/MM3 Hemoglobin 11.9 GM/DL Hematocrit 35.3 % Mean Corpuscular Volume 93.2 FL Mean Corpuscular Hemoglobin 31.4 PG Mean Corpuscular Hemoglobin 33.7 % Concent Red Cell Distribution Width 13.3 % Platelet Count 298 TH/MM3 Mean Platelet Volume 7.7 FL Neutrophils (%) (Auto) 71.7 % Lymphocytes (%) (Auto) 17.5 % Monocytes (%) (Auto) 7.7 % Eosinophils (%) (Auto) 2.7 % Basophils (%) (Auto) 0.4 % Neutrophils # (Auto) 7.4 TH/MM3 Lymphocytes # (Auto) 1.8 TH/MM3 Monocytes # (Auto) 0.8 TH/MM3 Eosinophils # (Auto) 0.3 TH/MM3 Basophils # (Auto) 0.0 TH/MM3 CBC Comment DIFF FINAL Differential Comment Urine Color YELLOW Urine Turbidity CLEAR Urine pH 5.0 Urine Specific [place] 1.029 Urine Protein TRACE mg/dL Urine Glucose (UA) NEG mg/dL Urine Ketones NEG mg/dL Urine Occult Blood NEG Urine Nitrite NEG Urine Bilirubin NEG Urine Urobilinogen LESS THAN 2.0 MG/DL Urine Leukocyte Esterase MOD Urine RBC 2 /hpf Urine WBC 8 /hpf Urine Squamous Epithelial 1 /hpf Cells Urine Bacteria RARE /hpf Urine Mucus FEW /lpf Microscopic Urinalysis Comment CULTURE INDICATED Sodium Level 135 MEQ/L Potassium Level 3.9 MEQ/L Chloride Level 100 MEQ/L Carbon Dioxide Level 29.1 MEQ/L Anion Gap 6 MEQ/L Blood Urea Nitrogen 23 MG/DL Creatinine 0.88 MG/DL Estimat Glomerular Filtration 68 ML/MIN Rate Random Glucose 87 MG/DL Calcium Level 8.9 MG/DL Total Bilirubin 0.6 MG/DL Aspartate Amino Transf 26 U/L (AST/SGOT) Alanine Aminotransferase 38 U/L (ALT/SGPT) Alkaline Phosphatase 95 U/L Total Protein 7.1 GM/DL Albumin 3.4 GM/DL Salicylates Level 1.8 MG/DL Urine Opiates Screen POS Acetaminophen Level LESS THAN 2.0 MCG/ML Urine Barbiturates Screen NEG Urine Amphetamines Screen NEG Urine Benzodiazepines Screen NEG Urine Cocaine Screen POS Urine Cannabinoids Screen NEG Ethyl Alcohol Level LESS THAN 3 MG/DL Mental Status Examination Patient is in hospital gown. She is somewhat disheveled but maintaining basic hygiene. She is awake and alert and oriented to person and hospital at least. No evidence of delirium. No motor abnormalities noted. Speech within normal limits for rate, tone and volume. Language and fund of knowledge average. Focus and concentration fairly intact. Memory grossly intact on clinical exam. Mood is somewhat dysphoric but not severely depressed. Affect is consistent with stated mood. Thought process linear. No loosening of associations. No delusions. No current audiovisual hallucinations. No current suicidal or homicidal ideation, intent or plan. Insight and judgment are fair. Assessment & Plan Problem List: (1) Other psychoactive substance dependence with psychoactive substance-induced mood disorder ICD Code: F19.24 (2) Suspect malingering for fci Assessment & Plan This is a 51-year-old female with psychiatric history as detailed above who presents voluntarily to the ED for psychiatric evaluation. Her urine toxicology was positive for cocaine and opiates. On my examination today patient's presenting hallucinations appear to have resolved. I can detect no unstable mental illness as defined under a [place] act. What psychiatric symptomatology she does articulate at this point likely reflects a combination of drug-induced mood disorder, resolving, and malingering for fci. She is not presently describing any suicidal or homicidal ideation but somewhat manipulatively says that she experiences suicidal ideation time to time. The patient does not meet [place] act criteria. She does not meet criteria for inpatient psychiatric hospitalization at this time. I have encouraged her to establish outpatient psychiatric care, and nurse will provide the appropriate referrals. I counseled her to abstain from substances of abuse. I counseled her to return to the psychiatric emergency room for any concerning symptoms as part of a general safety plan. Request HC Surrog/Guard Advoc?: No Jamie Tinoco MD Mar 20, 2017 15:20
[2017-03-20 16:41] VITALS: BP 107/69; TEMP 99.1
== END 2017-03-20 18:09 | disposition home or self-care (01) ==
LOC: NEPC 19:10 → NEPJ 03-20 18:09
DX: F19.10 Other psychoactive substance abuse, uncomplicated (principal); N39.0 Urinary tract infection, site not specified; R44.1 Visual hallucinations; F25.9 Schizoaffective disorder, unspecified; M54.40 Lumbago with sciatica, unspecified side; F31.9 Bipolar disorder, unspecified; J44.9 Chronic obstructive pulmonary disease, unspecified; I25.10 Atherosclerotic heart disease of native coronary artery without angina pectoris; F17.200 Nicotine dependence, unspecified, uncomplicated
CPT/HCPCS: 80053; 80307; 81001; 85025; 87086; 99284

== ENCOUNTER 2018-01-30 22:23 | Emergency (ER) | payer MEDICARE, OTHER ==
[~2018-01-30] VITALS: Ht 170.2 cm; Wt 57.0 kg
[~2018-01-30 22:23] MED LIST changes: -AMIT1TAB79 PO; -ASPI-110 PO; -BUSP10TA PO; -CARV3.125 PO; +CEPH-460 PO; -GABA800T PO; -ZOLO25TA PO
[2018-01-30 22:30] VITALS: BP 104/57; PULSE 65; RESP 20; TEMP 98.3; O2SAT 98
[2018-01-30] MEDS ORDERED: ASPIRIN 325 MG TAB PO ONE (22:30)
--- NOTE | 2018-01-30 22:52 | RADRPT ---
EXAM DATE: 01/30/2018 10:48 PM EDT AGE/SEX: 52 years / Female INDICATIONS: Chest pain. CLINICAL DATA: This is the patient's initial encounter. Patient reports that signs and symptoms have been present for 1 day and indicates a pain score of 10/10. MEDICAL/SURGICAL HISTORY: . Chronic obstructive pulmonary disease. Hepatitis C. Lobectomy. [place]PAR[place] [facility] [place]. . FINDINGS: Blunting of the right lateral costophrenic angle suggesting a small pleural effusion. Heart and media stinum are unremarkable. Left lungs clear. There is no visible pneumothorax. CONCLUSION: Small right pleural effusion. Electronically signed by: Alexx Murguia MD 01/30/2018 10:51 PM EDT
--- NOTE | 2018-01-30 23:05 | PD ---
HPI Chief Complaint: Chest Pain Time Seen by Provider: 22:27 Travel History International Travel<30 days: No Contact w/Intl Traveler<30days: No Traveled to known affect area: No History of Present Illness HPI 52-year-old female that presents to the ED for evaluation of chest pain that started about 40 minutes ago. Per patient she was sitting on a couch when the pain started. She denies any injury or trauma. Per patient she has a history of ACS and has had MIs in the past. Per patient he feels similar to her pain. She was given nitroglycerin and aspirin with some relief of her pain. She denies any urinary or bowel movement issues. She still having some shortness of breath with the pain. No recent travel. No blood thinner alert and aspirin. She does state that she has a history of hyperglycemia. She denies cholesterol issues. She does have a history also of substance abuse per her medical records. She states that she also smokes. She states that the pain initially was sharp and pressure-like like something was sitting on her chest and it was 7 out of 10. Did not radiate. Patient came here by ambulance for evaluation of this. Patient was given nitroglycerin with improvement of the pain to a 4 out of 10. She was also given aspirin by [facility]. She cannot really tell me whether she had stents or CABG but she does not appear to have any surgical scar to her chest PFSH Past Medical History Hx Anticoagulant Therapy: Yes (ASA) Asthma: No Blood Disorders: No Bipolar Disorder: Yes Anxiety: Yes Depression: Yes Heart Rhythm Problems: No Cancer: No Cardiac Catheterization: Yes Cardiovascular Problems: Yes (ANGIOPLASTY ) High Cholesterol: No Chemotherapy: No Chest Pain: Yes Congestive Heart Failure: No COPD: Yes Coronary Artery Disease: Yes Diabetes: No Diminished Hearing: No Endocrine: No Gastrointestinal Disorders: Yes (esophageal stricture) GERD: Yes Genitourinary: No Hepatitis: Yes (HEP C) Heparin Induced Thrombocytopen: No Hypertension: No Immune Disorder: No Implanted Vascular Access Dvce: No Musculoskeletal: No Neurologic: No Psychiatric: Yes (schizo effective, bipolar,) Reproductive: No Respiratory: Yes (copd) Integumentary: Yes (hx of mrsa) Immunizations Current: Yes Myocardial Infarction: Yes (X 2) Radiation Therapy: No Thyroid Disease: No ?: Not Menopausal: Yes Dilation and Curettage (D&C): Yes (X2) Past Surgical History Appendectomy: Yes Section: Yes (X3) Coronary Artery Bypass Graft: No Hysterectomy: Yes Thoracic Surgery: Yes (RLL LOBECTOMY) Other Surgery: Yes (, backsurgery) Social History Alcohol Use: Yes (OCC) Tobacco Use: Yes (1 PPD) Substance Use: Yes Allergies-Medications (Allergen,Severity, Reaction): Coded Allergies: fentanyl (Unverified Allergy, Severe, 03/29/17) Sulfa (Sulfonamide Antibiotics) (Unverified Allergy, Intermediate, Hives, 03/29/17) *MDRO Multi-Drug Resistant Organism (Verified Adverse Reaction, Unknown, ) 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 HEAD: Atraumatic. Normocephalic. EYES: Pupils equal and round. No scleral icterus. No injection or drainage. ENT: No nasal bleeding or discharge. Mucous membranes pink and moist. Tongue is midline. No uvula deviation. NECK: Trachea midline. No JVD. CARDIOVASCULAR: Regular rate and rhythm. No murmurs, S3, S4. RESPIRATORY: No accessory muscle use. Clear to auscultation. Breath sounds equal bilaterally. GASTROINTESTINAL: Abdomen soft, non-tender, nondistended. Hepatic and splenic margins not palpable. MUSCULOSKELETAL: Extremities without clubbing, cyanosis, or edema. No obvious deformities. Full range of motion of the upper and lower extremities bilaterally. 2+ pulses bilaterally. NEUROLOGICAL: Awake and alert. No obvious cranial nerve deficits. Motor grossly within normal limits. Five out of 5 muscle strength in the arms and legs. Normal speech. PSYCHIATRIC: Appropriate mood and affect; insight and judgment normal. Data Data Last Documented VS Vital Signs Date Time Temp Pulse Resp B/P (MAP) Pulse Ox O2 Delivery O2 Flow Rate FiO2 01/30/18 22:30 98.3 65 20 104/57 (73) 98 Orders Orders Electrocardiogram (01/30/18 22:28) Ckmb (Isoenzyme) Profile (01/30/18 22:28) Complete Blood Count With Diff (01/30/18 22:28) Comprehensive Metabolic Panel (01/30/18 22:28) Troponin I (01/30/18 22:28) Lipase (01/30/18 22:28) Chest, Single Ap (01/30/18 22:28) Ecg Monitoring (01/30/18 22:28) Bilateral Bp Monitoring (01/30/18 22:28) Iv Access Insert/Monitor (01/30/18 22:28) Oximetry (01/30/18 22:28) Aspirin (Aspirin) (01/30/18 22:30) Drug Screen, Random Urine (01/30/18 22:28) Alcohol (Ethanol) (01/30/18 22:28) MDM Medical Decision Making Medical Screen Exam Complete: Yes Emergency Medical Condition: Yes Medical Record Reviewed: Yes Interpretation(s) EKG shows sinus rhythm with no sign of acute ischemia or arrhythmia rhythm and attending. Differential Diagnosis Chest pain versus typical chest pain versus ACS versus substance-induced chest pain Narrative Course 53-year-old female that presents to the ED for evaluation of chest pain. Patient was properly examined and was found to have signs and symptoms consistent appears to be chest pain. Deafly concerning for ACS. Labs and imaging order. Case will be sent to my attending pending disposition and plan. Nj Fragoso Jan 30, 2018 23:05
[2018-01-30 23:26] LABS: AUTOMATED NEUTROPHIL # 3.6 TH/MM3 (1.8-7.7); BASOPHIL % 0.8 % (0.0-2.0); EOSINOPHIL # 0.2 TH/MM3 (0-0.4); EOSINOPHIL % 3.2 % (0.0-4.0); HEMOGLOBIN 12.2 GM/DL (11.6-15.3); LYMPH % 24.7 % (9.0-44.0); LYMPHOCYTE # 1.4 TH/MM3 (1.0-4.8); MEAN CELL VOLUME 91.6 FL (80.0-100.0); MEAN CORPUSCULAR HGB CONC 33.9 % (32.0-36.0); MEAN PLATELET VOLUME 8.1 FL (7.0-11.0); MONO % 6.3 % (0.0-8.0); MONOCYTE # 0.3 TH/MM3 (0-0.9); PLATELET COUNT 280 TH/MM3 (150-450); RED BLOOD COUNT 3.93 MIL/MM3 (4.00-5.30); RED CELL DISTRIBUTION WIDTH 13.2 % (11.6-17.2); WHITE BLOOD COUNT 5.5 TH/MM3 (4.0-11.0)
--- NOTE | 2018-01-30 23:41 | PD ---
Data Data Last Documented VS Vital Signs Date Time Temp Pulse Resp B/P (MAP) Pulse Ox O2 Delivery O2 Flow Rate FiO2 01/30/18 22:30 98.3 65 20 104/57 (73) 98 Orders Orders Electrocardiogram (01/30/18 22:28) Ckmb (Isoenzyme) Profile (01/30/18 22:28) Complete Blood Count With Diff (01/30/18 22:28) Comprehensive Metabolic Panel (01/30/18:) Troponin I (01/30/18:) Lipase (01/30/18:) Chest, Single Ap (01/30/18:) Ecg Monitoring (01/30/18:) Bilateral Bp Monitoring (01/30/18:) Iv Access Insert/Monitor (01/30/18) Oximetry (01/30/18:) Aspirin (Aspirin) (01/30/18 22:30) Drug Screen, Random Urine (01/30/18:) Alcohol (Ethanol) (01/30/18 22:) Labs Laboratory Tests Test 01/30/18 22:55 White Blood Count 5.5 TH/MM3 Red Blood Count 3.93 MIL/MM3 Hemoglobin 12.2 GM/DL Hematocrit 36.0 % Mean Corpuscular Volume 91.6 FL Mean Corpuscular Hemoglobin 31.0 PG Mean Corpuscular Hemoglobin Concent 33.9 % Red Cell Distribution Width 13.2 % Platelet Count 280 TH/MM3 Mean Platelet Volume 8.1 FL Neutrophils (%) (Auto) 65.0 % Lymphocytes (%) (Auto) 24.7 % Monocytes (%) (Auto) 6.3 % Eosinophils (%) (Auto) 3.2 % Basophils (%) (Auto) 0.8 % Neutrophils # (Auto) 3.6 TH/MM3 Lymphocytes # (Auto) 1.4 TH/MM3 Monocytes # (Auto) 0.3 TH/MM3 Eosinophils # (Auto) 0.2 TH/MM3 Basophils # (Auto) 0.0 TH/MM3 CBC Comment DIFF FINAL Differential Comment Blood Urea Nitrogen 19 MG/DL Creatinine 1.23 MG/DL Random Glucose 100 MG/DL Total Protein 7.1 GM/DL Albumin 3.6 GM/DL Calcium Level 9.4 MG/DL Alkaline Phosphatase 75 U/L Aspartate Amino Transf (AST/SGOT) 36 U/L Alanine Aminotransferase (ALT/SGPT) 61 U/L Total Bilirubin 0.4 MG/DL Sodium Level 140 MEQ/L Potassium Level 3.5 MEQ/L Chloride Level 105 MEQ/L Carbon Dioxide Level 23.8 MEQ/L Anion Gap 11 MEQ/L Estimat Glomerular Filtration Rate 46 ML/MIN Total Creatine Kinase 55 U/L Troponin I LESS THAN 0.02 NG/ML Lipase 59 U/L Ethyl Alcohol Level LESS THAN 3 MG/DL [facility] Medical Record Reviewed: Yes Supervised Visit with HUY: No Narrative Course During the course of the patient's emergency department visit, the patient's history, examination, and differential diagnosis were reviewed with the patient. The patient was placed on a shelter monitor with oximetry and frequent blood pressure monitoring. The patient had IV access obtained and blood work sent for analysis. The patient was initially seen by Joaquin, the physician engineering inspection assistant. Please see his complete history and physical. The patient's case was checked out to me at the conclusion of his shift. The patient presented with chest pain by ambulance services that was reportedly relieved with use of nitroglycerin by ambulance services. The patient had an EKG done on arrival that shows a sinus 5, QRS duration 82 ms, QTC 412 ms. The patient was initially provided aspirin by ambulance services. Nitroglycerin was also administered sublingual by ambulance services. The patient's laboratory studies were reviewed and remarkable for a white count of 5.5, hemoglobin 12.2, platelets 280 with a normal differential, CMP is remarkable for BUN of 19, creatinine 1.23, GFR 46, ALT 61, initial set of cardiac enzymes within normal limits, lipase 59, alcohol level less than 3. Radiology studies were reviewed and remarkable for a chest x-ray that shows a small right pleural effusion. No other acute abnormality. The plan was to admit the patient to the chest pain center for rule out serial cardiac enzyme protocol. The patient was attempting to elope from the emergency department with her IV and according to the nursing staff. When asked why, the patient reported that she wanted to leave. The IV was able to be removed. The patient refused to stay for the conclusion of her cardiac workup. AMA: The risks of leaving against medical advice without further evaluation treatment were discussed with the patient. These risks include cardiac dysfunction, cardiac dysrhythmia, possible heart attack, possible stroke or . The patient indicated understanding of these risks and appeared to have the capacity to make this decision. Diagnosis Primary Impression: Chest pain, rule out acute myocardial infarction Additional Impression: Left against medical advice Admitting Information Admitting Physician Requests: Observation Referrals: Primary Care Physician 1 day Patient Instructions: Chest Pain (ED), General Instructions Disposition: 07 AGAINST MEDICAL ADVICE Condition: Katerina Phillip MD Jan 30, 2018 23:40
[2018-01-30 23:42] LABS: ALBUMIN 3.6 GM/DL (3.4-5.0); AST (GOT) 36 U/L (15-37); BICARBONATE 23.8 MEQ/L (21.0-32.0); BLOOD UREA NITROGEN 19 MG/DL (7-18); CALCIUM 9.4 MG/DL (8.5-10.1); CHLORIDE 105 MEQ/L (98-107); CREATININE 1.23 MG/DL (0.50-1.00); GLOMERULAR FILTRATION RATE 46 ML/MIN (>89); GLUCOSE,RANDOM 100 MG/DL (74-106); SODIUM (NA) 140 MEQ/L (136-145)
[2018-01-30 23:43] LABS: ALT (GPT) 61 U/L (10-53)
[2018-01-30 23:47] LABS: ALKALINE PHOSPHATASE 75 U/L (45-117); TOTAL BILIRUBIN ADULT 0.4 MG/DL (0.2-1.0); TOTAL PROTEIN 7.1 GM/DL (6.4-8.2); TROPONIN I LESS THAN 0.02 NG/ML (0.02-0.05)
--- NOTE | 2018-01-31 17:20 | EKG ---
Date Performed: 01/30/2018 Time Performed: 22:33:51 PTAGE: 52 years EKG: Sinus rhythm NORMAL ECG PREVIOUS TRACING : 12/24/2016 01.28 Since the previous tracing, no significant change noted DOCTOR: Mark Metcalf Interpretating Date/Time 01/31/2018 17:18:54
== END 2018-01-31 | disposition left against medical advice (07) ==
LOC: NEPE 22:23
DX: R07.9 Chest pain, unspecified (principal); J90 Pleural effusion, not elsewhere classified; I25.2 Old myocardial infarction; R06.02 Shortness of breath; R73.9 Hyperglycemia, unspecified; F41.8 Other specified anxiety disorders; J44.9 Chronic obstructive pulmonary disease, unspecified; I25.10 Atherosclerotic heart disease of native coronary artery without angina pectoris; K21.9 Gastro-esophageal reflux disease without esophagitis; B19.20 Unspecified viral hepatitis C without hepatic coma; F17.210 Nicotine dependence, cigarettes, uncomplicated; Z88.2 Allergy status to sulfonamides; Z86.14 Personal history of Methicillin resistant Staphylococcus aureus infection; Z53.21 Procedure and treatment not carried out due to patient leaving prior to being seen by health care provider
CPT/HCPCS: 71045; 80053; 80307; 82550; 83690; 84484; 85025; 93005; 99285